=== PATIENT | male | born 1940 | race Caucasian/White ===

== ENCOUNTER 2019-03-25 09:19 | Inpatient (IN) ==
[2019-03-25 12:01] LABS: BASO# 0.02 X1000 (0.0-0.2); BASO% 0.2 % (0.0-0.8); EOS# 0.03 X1000 (0.0-0.7); EOS% 0.3 % (0.0-10.0); HEMATOCRIT 39.9 % (42.0-52.0); HEMOGLOBIN 13.9 g/dL (14.0-18.0); IMM GRAN# 0.02 X1000 (0.0-0.04); IMM GRAN% 0.2 % (0.0-0.5); LYMPH# 1.22 X1000 (1.2-3.4); LYMPH% 12.4 % (20.5-51.1); MCH 30.8 PG (27-31); MCHC 34.8 g/dL (33-37); MCV 88.3 FL (81-99); MONO# 0.99 X1000 (0.11-0.59); MONO% 10.1 % (1.7-9.3); MPV 9.7 FL (7.4-10.4); NEUT# 7.53 X1000 (1.4-6.5); NEUT% 76.8 % (42.2-75.2); PLT 206 X1000 (130-400); RBC 4.52 XMIL (4.7-6.1); RDW 12.3 % (11.5-14.5); WBC 9.81 X1000 (4.8-10.8)
[2019-03-25 12:23] LABS: ALB/GLOB RATIO 1.1; ALBUMIN 3.7 g/dL (3.5-5.0); CALCIUM 7.9 mg/dL (8.8-10.2); CREATININE 1.7 mg/dL (0.7-1.2); POTASSIUM 4.4 mmol/L (3.5-5.1); TOTAL BILIRUBIN 0.66 mg/dL (0.20-1.00); TOTAL PROTEIN 7.1 g/dL (6.3-8.3)
--- NOTE | 2019-03-25 12:27 | Diag Imaging Result Doc PS360 ---
CHEST-2 VIEWS - 03/25/2019 INDICATION: fever new admit COMPARISON: None FINDINGS: The lungs are normally expanded and clear. Heart size and mediastinal contours are normal. No pneumothorax or pleural effusion. IMPRESSION: Negative exam. Electronically signed by Santi Chase 03/25/2019 12:25 PM
--- NOTE | 2019-03-25 12:30 | EKG Report ---
Test Performed on : 03/25/2019 12:21:21 PM Test Reason : fever direct admit Blood Pressure : / mmHG Vent. Rate : 080 BPM Atrial Rate : 080 BPM P-R Int : 180 ms QRS Dur : 082 ms QT Int : 340 ms P-R-T Axes : 074 -27 -08 degrees QTc Int : 392 ms Normal sinus rhythm. Inferior infarct , age undetermined Abnormal ECG No previous ECGs available Confirmed by Benito HUDSON, Jackson Ashley ([id number]) on 03/25/2019 3:31:58 PM
[2019-03-25 13:24] LABS: URINE SOURCE CLEAN CATCH
[2019-03-25 13:30] LABS: BILIRUBIN URINE NEGATIVE (NEGATIVE); BLOOD URINE TRACE (NEGATIVE); COLOR YELLOW; GLUCOSE URINE NEGATIVE (NEGATIVE); KETONE URINE NEGATIVE (NEGATIVE); LEUKOCYTES URINE NEGATIVE (NEGATIVE); NITRITE URINE NEGATIVE (NEGATIVE); PROTEIN URINE 100 mg/dL (NEGATIVE); SP GRAVITY URINE 1.017; TURBIDITY URINE CLEAR (CLEAR); UROBILINOGEN URINE NORMAL (NORMAL)
[2019-03-25 13:31] LABS: UR EPITHELIAL CELLS <10 /HPF (<10); URINE BACTERIA NEGATIVE /HPF; URINE RBC <10 /HPF (<10); URINE WBC <10 /HPF (<10)
--- NOTE | 2019-03-25 13:45 | Diag Imaging Result Doc PS360 ---
CT HEAD W/O CONTRAST - 03/25/2019 INDICATION: new patient, headache, weakness COMPARISON: None FINDINGS: The ventricles and sulci are normal in size and contour. No intracranial mass or hemorrhage. The skull is intact. The sinuses mastoids and middle ears are clear. IMPRESSION: Negative exam. This exam was performed using automated exposure control, adjustment of mA or kV according to patient size, and/or use of iterative reconstruction technique Electronically signed by Santi Chase 03/25/2019 1:42 PM
[2019-03-25 14:01] LABS: INR 1.13; PROTIME 14.6 Seconds (11.0-16.0)
[2019-03-25] MEDS: ROCEPHIN 1 GM in NS 50 ML IV SCH (14:08)
[2019-03-25] MEDS: PROTONIX IV SCH (14:09)
[2019-03-25] MEDS: SODIUM CHLORIDE 0.9% INJ SCH (14:09)
[2019-03-25] MEDS: TYLENOL PO PRN ×2 (14:32→20:58)
[2019-03-25] MEDS: NS 1,000 ML IV SCH (14:34)
[2019-03-25] MEDS ORDERED: TEARISOL OPH SOLUTION BOTH EYES PRN (18:57)
--- NOTE | 2019-03-25 20:48 | HISTORY AND PHYSICAL ---
CHIEF COMPLAINT: Fever. HISTORY OF PRESENT ILLNESS: 78-year-old gentleman, not doing well last 2 to 3 days, complaining of fever and chills, generalized body ache. Patient also had dull headache, some nausea. Patient claimed he vomited once today. Patient was feeling weak, tired, and no energy. Patient did have vague abdominal pain, urinary frequency, urgency, but no dysuria or hematuria. Patient did have confusion, disorientation. Patient and family were concerned. Patient came for evaluation. I evaluated patient and because of fever and history of delirium, multiple medical problems, I decided to admit patient for further care. Patient denied any neck stiffness, no diplopia. Denied any sore throat. No typical chest pain or palpitation. Denied abdominal pain. No joint swelling or redness, unquantified weight loss. Oral intake was poor. Denied any skin rash. No further history available at this time. ALLERGIES: No known drug allergy. HOME MEDICATIONS: 1. Glucophage. 2. Amlodipine. 3. Coreg. 4. Lipitor. 5. Losartan. 6. Prilosec. 7. Trazodone. 8. Allopurinol. 9. Alogliptin 25 mg in the morning. 10. Aspirin. 11. Vitamin B12. 12. Vitamin D3. PAST MEDICAL HISTORY: 1. Hypertension. 2. Hyperlipidemia. 3. NIDDM. 4. Gastritis. 5. Gout. 6. Osteoarthritis. 7. Patient had skin cancer removed. PERSONAL HISTORY: Single. Nonsmoker. Denied alcohol or substance abuse. . 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 REVIEW OF SYSTEMS: As per HPI, otherwise unobtainable. FAMILY HISTORY: Significant for skin cancer. Father at age 57 with COPD and hypertension. Mother at age 89 with brain hemorrhage. One brother in good shape. Patient had 3 sisters; they are all in good shape. PHYSICAL EXAMINATION: GENERAL: Elderly white gentleman in mild distress. VITAL SIGNS: Blood pressure 128/77, pulse 82, respiration 18, temperature 102.1 degrees. SKIN: Normal turgor. No rash or petechiae. HEAD: Atraumatic, normocephalic. EYES: [place] conjunctivae. Anicteric sclerae. Extraocular muscle movement normal. Fundus cannot be penetrated. ENT: Good oral hygiene. No tonsillopharyngeal congestion or exudate. Ears and nose benign. NECK: Supple. No JVD, thyromegaly, or lymphadenopathy. CHEST: Bilateral good air entry present. Few basal crepitations. No rales. CARDIOVASCULAR: S1 and S2 heard. No gallop or thrill. ABDOMEN: Soft. No distention. Bowel sounds present. Mild tenderness, lower abdomen. No guarding or rigidity. RECTAL: Prostate mild enlargement, but no local tenderness. EXTREMITIES: No cyanosis, clubbing. No acute DVT. 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 Able to move all 4 limbs. No acute synovitis. ASSESSMENT: Patient admitted with fever and delirium. Source of infection was not clear. I did blood culture. Then, with the delirium, I did CT scan of the head and it was negative. Urinalysis was not impressive. I also checked prostate specific antigen to look for prostatitis and it was negative. I did flu test and it came back positive. We put patient on isolation and started him on Tamiflu. His other problems include: 1. Hypertension. 2. Noninsulin dependent diabetes mellitus. 3. Gastritis and reflux disease. 4. Hyperlipidemia. 5. Fatigue. PLAN: 1. Admit patient. 2. Intravenous hydration. 3. Symptomatic treatment. 4. I started him on Rocephin. 5. Patient also had evidence of acute kidney injury and will hydrate the patient. Overall plan discussed at length with the patient and he is in agreement. cc: Lenin Crespo MD
[2019-03-25] MEDS: NORVASC PO SCH (20:58)
[2019-03-25] MEDS: COREG PO SCH (20:58)
[2019-03-25] MEDS: HYTRIN PO SCH (20:59)
[2019-03-25] MEDS: LIPITOR PO SCH (20:59)
[2019-03-25] MEDS: TAMIFLU PO SCH (20:59)
[2019-03-26] MEDS: NS 1,000 ML IV SCH ×3 (03:33→22:09)
[2019-03-26 06:38] LABS: BASO# 0.01 X1000 (0.0-0.2); BASO% 0.1 % (0.0-0.8); EOS# 0.01 X1000 (0.0-0.7); EOS% 0.1 % (0.0-10.0); HEMATOCRIT 38.3 % (42.0-52.0); HEMOGLOBIN 13.2 g/dL (14.0-18.0); IMM GRAN# 0.03 X1000 (0.0-0.04); IMM GRAN% 0.4 % (0.0-0.5); LYMPH# 0.93 X1000 (1.2-3.4); LYMPH% 10.9 % (20.5-51.1); MCH 30.6 PG (27-31); MCHC 34.5 g/dL (33-37); MCV 88.7 FL (81-99); MONO# 0.95 X1000 (0.11-0.59); MONO% 11.1 % (1.7-9.3); MPV 9.5 FL (7.4-10.4); NEUT% 77.4 % (42.2-75.2); PLT 196 X1000 (130-400); RBC 4.32 XMIL (4.7-6.1); RDW 12.4 % (11.5-14.5); WBC 8.53 X1000 (4.8-10.8)
[2019-03-26] MEDS ORDERED: PRILOSEC PO SCH (07:00)
--- NOTE | 2019-03-26 07:35 | PROGRESS NOTE ---
DATE: 03/26/2019 SUBJECTIVE: Mr. Beyer is doing fair. His fever and chills are getting better. He denied any nausea or vomiting. He does have mild cough. No expectoration. No typical chest pain. Denied any dysuria. OBJECTIVE: His vital signs are noted.Neck: Supple. No JVD. Lungs: Bilateral good air entry present. CVS: S1 and S2 heard. Abdomen: Soft and globular. Bowel sounds present. Extremities: No cyanosis or clubbing. No acute DVT. SOAPSTONER: Alert and awake able to move all 4 limbs. The patient admitted with fever, chest congestion, and cough. LABORATORY DATA: Lab data did reveal influenza A. The patient also had some delirium. Chest x- ray was benign. ASSESSMENT AND PLAN: His other problem includes hypertension and NIDDM, history suggestive of gout. I am going to continue current treatment. Close observation. Plenty of liquids orally. Blood work done today. CBC results reviewed. PLAN: Overall plan discussed with the patient, and he is in agreement. cc: Lenin Crespo MD
[2019-03-26 07:50] LABS: ALBUMIN 3.4 g/dL (3.5-5.0); CALCIUM 8.4 mg/dL (8.8-10.2); CREATININE 1.3 mg/dL (0.7-1.2); POTASSIUM 3.9 mmol/L (3.5-5.1); TOTAL BILIRUBIN 0.54 mg/dL (0.20-1.00); TOTAL PROTEIN 6.8 g/dL (6.3-8.3)
[2019-03-26 08:56] LABS: HEMOGLOBIN A1C 6.5 % (4.8-6.0)
[2019-03-26] MEDS ORDERED: FISH OIL CONCENTRATE PO SCH (09:00)
[2019-03-26] MEDS: VITAMIN D PO SCH (09:00)
[2019-03-26] MEDS: ASPIRIN EC PO SCH (09:00)
[2019-03-26] MEDS: VITAMIN B-12 PO SCH (09:00)
[2019-03-26] MEDS: MAGNESIUM GLUCONATE PO SCH (09:00)
[2019-03-26] MEDS: GLUCOPHAGE PO SCH (09:00)
[2019-03-26] MEDS: TAMIFLU PO SCH ×2 (09:00→22:11)
[2019-03-26] MEDS: ZYLOPRIM PO SCH (09:01)
[2019-03-26] MEDS: COREG PO SCH ×2 (09:01→22:11)
[2019-03-26] MEDS: COZAAR PO SCH (09:01)
[2019-03-26] MEDS: PATIENT'S OWN MED PO SCH ×2 (13:00→13:01)
[2019-03-26] MEDS: TYLENOL PO PRN ×2 (13:01→22:12)
[2019-03-26] MEDS: PROTONIX IV SCH (13:04)
[2019-03-26] MEDS: ROCEPHIN 1 GM in NS 50 ML IV SCH (13:04)
[2019-03-26] MEDS: SODIUM CHLORIDE 0.9% INJ SCH (13:05)
[2019-03-26] MEDS: NORVASC PO SCH (22:10)
[2019-03-26] MEDS: HYTRIN PO SCH (22:11)
[2019-03-26] MEDS: LIPITOR PO SCH (22:11)
[2019-03-27] MEDS: NS 1,000 ML IV SCH ×3 (05:21→12:48)
--- NOTE | 2019-03-27 06:57 | PROGRESS NOTE ---
DATE: 03/27/2019 SUBJECTIVE: Mr. Beyer is doing better. He does have at times cough. Patient feels weak. Oral intake is fair. The patient had low-grade fever until yesterday up to 101 degrees. No nausea. Denied any dysuria or hematuria. OBJECTIVE: Vital signs: Noted. Neck: Supple. No JVD. Lungs: Bilateral good air entry present. Cardiovascular: S1 and S2 heard. Abdomen: Soft. No distention. Bowel sounds present. Central nervous system: Alert, awake. Able to move all 4 limbs. CONSIDERATION: Influenza A. Patient had some bronchitis, known case of hypertension, diabetes mellitus, hyperlipidemia, hyponatremia getting better, acute kidney injury improving. I am going to repeat chest x-ray. Continue current treatment. Encourage diet. If clinical condition permits, we will plan discharging patient home this afternoon. cc: Lenin Crespo MD
--- NOTE | 2019-03-27 07:15 | Diag Imaging Result Doc PS360 ---
EXAM: CHEST-PORTABLE 03/27/2019 HISTORY: sob TECHNIQUE: AP portable upright at 0656 COMMENT: Compared to 03/25/2019 there is increased prominence of the pulmonary vascularity. The heart size is not enlarged. There is some ill-defined opacity inferior to the right hilum. This may be due to mild pulmonary edema or pneumonia. IMPRESSION: Increased pulmonary vascularity and questionable right lower lobe pulmonary edema versus pneumonia. Electronically signed by Kodak Miller 03/27/2019 7:12 AM
[2019-03-27] MEDS: TAMIFLU PO SCH ×2 (08:02→21:04)
[2019-03-27] MEDS: ASPIRIN EC PO SCH (08:02)
[2019-03-27] MEDS: COZAAR PO SCH (08:02)
[2019-03-27] MEDS: ZYLOPRIM PO SCH (08:02)
[2019-03-27] MEDS: GLUCOPHAGE PO SCH (08:02)
[2019-03-27] MEDS: VITAMIN B-12 PO SCH (08:02)
[2019-03-27] MEDS: VITAMIN D PO SCH (08:03)
[2019-03-27] MEDS: COREG PO SCH ×2 (08:03→21:04)
[2019-03-27] MEDS: MAGNESIUM GLUCONATE PO SCH (08:03)
[2019-03-27] MEDS: PATIENT'S OWN MED PO SCH ×2 (09:01)
[2019-03-27] MEDS: TYLENOL PO PRN ×2 (10:03→19:07)
[2019-03-27] MEDS: FISH OIL CONCENTRATE PO SCH (12:48)
[2019-03-27] MEDS: ROCEPHIN 1 GM in NS 50 ML IV SCH (14:09)
[2019-03-27] MEDS: SODIUM CHLORIDE 0.9% INJ SCH (14:10)
[2019-03-27] MEDS: PROTONIX IV SCH (14:10)
[2019-03-27] MEDS ORDERED: LASIX IV ONE (17:32)
[2019-03-27] MEDS ORDERED: KLOR-CON PO ONE (17:33)
[2019-03-27] MEDS: LIPITOR PO SCH (21:04)
[2019-03-27] MEDS: NORVASC PO SCH (21:04)
[2019-03-27] MEDS: HYTRIN PO SCH (21:05)
[2019-03-28] MEDS ORDERED: VENTOLIN HFA INH SCH (06:56)
[2019-03-28 07:28] LABS: BASO# 0.01 X1000 (0.0-0.2); BASO% 0.1 % (0.0-0.8); EOS# 0.12 X1000 (0.0-0.7); EOS% 1.3 % (0.0-10.0); HEMATOCRIT 37.8 % (42.0-52.0); HEMOGLOBIN 13.3 g/dL (14.0-18.0); IMM GRAN# 0.05 X1000 (0.0-0.04); IMM GRAN% 0.6 % (0.0-0.5); LYMPH# 1.62 X1000 (1.2-3.4); LYMPH% 17.9 % (20.5-51.1); MCH 30.6 PG (27-31); MCHC 35.2 g/dL (33-37); MCV 86.9 FL (81-99); MONO# 0.86 X1000 (0.11-0.59); MONO% 9.5 % (1.7-9.3); MPV 9.9 FL (7.4-10.4); NEUT% 70.6 % (42.2-75.2); PLT 239 X1000 (130-400); RBC 4.35 XMIL (4.7-6.1); RDW 12.5 % (11.5-14.5); WBC 9.06 X1000 (4.8-10.8)
[2019-03-28 07:49] LABS: AGAP 15; ALB/GLOB RATIO 0.9; ALKALINE PHOSPHATASE 139 U/L (32-122); BUN 19 mg/dL (8-22); CALCIUM 8.3 mg/dL (8.8-10.2); CHLORIDE 98 mmol/L (98-107); COSMO 269; ESTIMATED GFR > 60; GLUCOSE 108 mg/dL (70-104); GOT 107 U/L (10-34); GPT 88 U/L (10-44); MAGNESIUM 1.1 mg/dL (1.5-2.7); POTASSIUM 3.3 mmol/L (3.5-5.1); SODIUM 133 mmol/L (136-145); TCO2 20 mmol/L (25-35); TOTAL PROTEIN 6.4 g/dL (6.3-8.3)
[2019-03-28 07:57] VITALS: BP 145/66
[2019-03-28] MEDS ORDERED: KLOR-CON PO ONE (09:22)
[2019-03-28] MEDS: ROCEPHIN 1 GM in NS 50 ML IV SCH (09:58)
[2019-03-28] MEDS: ZYLOPRIM PO SCH (09:59)
[2019-03-28] MEDS: COZAAR PO SCH (09:59)
[2019-03-28] MEDS: VITAMIN B-12 PO SCH (09:59)
[2019-03-28] MEDS: MAGNESIUM GLUCONATE PO SCH (09:59)
[2019-03-28] MEDS: VITAMIN D PO SCH (10:00)
[2019-03-28] MEDS: TAMIFLU PO SCH (10:00)
[2019-03-28] MEDS: COREG PO SCH (10:00)
[2019-03-28] MEDS: ASPIRIN EC PO SCH (10:00)
[2019-03-28] MEDS: FISH OIL CONCENTRATE PO SCH (10:00)
[2019-03-28] MEDS: GLUCOPHAGE PO SCH (10:00)
[2019-03-28] MEDS: PATIENT'S OWN MED PO SCH ×2 (10:05)
--- NOTE | 2019-03-28 10:11 | DISCHARGE SUMMARY ---
ADMISSION DATE: 03/25/2019 DISCHARGE DATE: 03/28/2019 FINAL DISCHARGE DIAGNOSES: 1. Influenza. 2. Left lower lobe pneumonia. 3. Hypertension. 4. Non insulin dependent diabetes mellitus. 5. Hyperlipidemia. 6. History suggestive of gout. 7. Benign prostatic hypertrophy. HISTORY/HOSPITAL COURSE: A 78-year-old white gentleman, admitted with fever chills generalized body ache, some going on for 2 to 3 days or maybe more. Patient is vague and poor historian. I evaluated patient in the office. He also had some altered mental status suggestive of metabolic encephalopathy. I decided to admit the patient. Workup in the hospital revealed influenza A. The patient was started on Tamiflu, IV fluids, symptomatic treatment. The patient's clinical condition gradually improved. Chest x-ray done yesterday did revealed increased pulmonary vascularity, questionable right lower lobe pulmonary edema versus pneumonia. The patient was doing better. He is tolerating food well. His fever improved. The patient received adequate dose of Tamiflu. His body ache improved. I give him IV Lasix. I am planning to discharge patient home today on oral antibiotics for a few more days. Advised patient to take rest, plenty of liquids orally, follow up with me in a week time. PHYSICAL EXAMINATION: Vital Signs: His vital signs noted. Neck: Neck is supple. No JVD. Lungs: Bilateral good air entry present. Few inspiratory crepitation left base CVS S1 and S2 heard. Abdomen: Soft, nontender. Bowel sounds present. 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 OVERALL DISCHARGE CONDITION: Satisfactory. DISCHARGE PLAN: Discussed at length with the patient. In case of more distress, call us back or go to emergency room. Advised him to take rest. Chest x-ray and CT scan results reviewed and discussed with the patient. CT of the head was negative. cc: Lenin Crespo MD
[2019-03-28] MEDS ORDERED: PNEUMOVAX 23 IM ONE (12:34)
== END 2019-03-28 12:52 | disposition home or self-care (01) | DRG 193 ==
LOC: DIRADM 09:19 → 3N 09:39
PROVIDERS: ADMIT Internal Medicine; ATTEND Internal Medicine